=== PATIENT | male | born 1950 | race Caucasian/White ===

== ENCOUNTER 2018-04-30 15:04 | Outpatient (CLI) | payer MEDICARE | END 2018-04-30 15:05 | disposition home or self-care (01) | LOC: SC 15:04 | PROVIDERS: ATTEND Internal Medicine Pulmonary Disease | DX: G47.10 Hypersomnia, unspecified (principal); R41.89 Other symptoms and signs involving cognitive functions and awareness; R06.83 Snoring; G47.8 Other sleep disorders | CPT/HCPCS: 99203; G0463; 99212 ==

== ENCOUNTER 2018-06-13 20:49 | Outpatient (CLI) | payer MEDICARE | END 2018-06-13 20:50 | disposition home or self-care (01) | LOC: SC 20:49 | PROVIDERS: ATTEND Internal Medicine Pulmonary Disease | DX: G47.33 Obstructive sleep apnea (adult) (pediatric) (principal) | CPT/HCPCS: 95810 ==

== ENCOUNTER 2018-07-12 12:47 | Outpatient (CLI) | payer MEDICARE | END 2018-07-12 12:48 | disposition home or self-care (01) | LOC: SC 12:47 | PROVIDERS: ATTEND Nurse Practitioner Family | DX: G47.33 Obstructive sleep apnea (adult) (pediatric) (principal) | CPT/HCPCS: 99214; G0463; 99212 ==

== ENCOUNTER 2018-07-19 20:41 | Outpatient (CLI) | payer MEDICARE | END 2018-07-19 20:42 | disposition home or self-care (01) | LOC: SC 20:41 | PROVIDERS: ATTEND Internal Medicine Pulmonary Disease | DX: G47.33 Obstructive sleep apnea (adult) (pediatric) (principal); G47.61 Periodic limb movement disorder | CPT/HCPCS: 95811 ==

== ENCOUNTER 2018-08-20 12:39 | Outpatient (CLI) | payer MEDICARE | END 2018-08-20 12:40 | disposition home or self-care (01) | LOC: SC 12:39 | PROVIDERS: ATTEND Nurse Practitioner Family | DX: G47.33 Obstructive sleep apnea (adult) (pediatric) (principal); I49.9 Cardiac arrhythmia, unspecified; G47.61 Periodic limb movement disorder | CPT/HCPCS: 99215; G0463; 99212 ==

== ENCOUNTER 2018-10-22 16:17 | Outpatient (CLI) | payer MEDICARE | END 2018-10-22 16:18 | disposition home or self-care (01) | LOC: SC 16:17 | PROVIDERS: ATTEND Nurse Practitioner Family | DX: G47.33 Obstructive sleep apnea (adult) (pediatric) (principal) | CPT/HCPCS: 99214; G0463; 99212 ==

== ENCOUNTER 2019-01-22 16:11 | Outpatient (CLI) | payer MEDICARE ==
[2019-01-22 17:53] VITALS: BP 122/64
--- NOTE | 2019-01-22 17:53 | SLEEP CARE CONSULTATION ---
Information from patient questionnaire entered by Amarilis Zamora. I have reviewed and concur with the information entered by Amarilis Zamora. This document represents the service I personally performed and the decisions made by me, Kiley Quintanilla, RN, MSN, SOFTWARE BUILD ENGINEER. - History of Present Illness HPI: AGUS MENJIVAR was diagnosed to have severe, AHI 34.9, obstructive sleep apnea- hypopnea syndrome and returned today for CPAP therapy three month follow-up. The adjustment of humidity resolved the condensation. He is changing his mask cushion more often with less mask leaks noted. He generally sleeps on his side. He has also noted skin irritation and breakdown on right temporal area where his mask strap sits. Healing began after he covered it with a bandaid. The headgear is over 6 months old but no obvious problem with straps. He has been having increased restless leg symptoms the past month. He had tried iron in the past which helped reduce symptoms but had gastric distention and diarrhea and feels it aggravated his IBS. His son who also has RLS has noted less symptoms with increase of his Abilify medication. Patient's own Abilify dose was increased the past week for his moods and he has noted less symptoms. Equipment obtained from: [employer] Mask style: Nasal Mask brand: Respironics Backup mask available: Yes - Compliance Data Reviewed with Patient Average duration of nightly device use: 6.45 Compliance rate % (4+hrs/night over past 30 nights): 97.8 (90 days) Current pressure setting (cmH2O): 4-8 Humidity settin Heated hose settin Average residual AHI: 2.8 Average large leak: 9.5 minutes - Subjective Missed days of use due to: reports: other (unknown) Patient concerns: reports: mask discomfort. 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 denies: palpitations, chest pain, irregular heart rate or pulse, have to sleep sitting up, other Respiratory: denies: shortness of breath, wheeze, sputum production, chronic cough, other Gastrointestinal: reports: heartburn (rare heartburn 1-2 times a month). denies: difficulty swallowing, nausea, vomitting, diarrhea, abdominal pain, other Urinary: reports: frequency (prostrate hypertrophy). denies: incontinence, urgency, impotence, other Neurological: reports: gait or balance problems (has noted balance not as good as used to be - has follow up to discuss with PCP) Psychiatric: reports: anxiety, depression (denies thoughts of hurting self or others.), mood disorder Ear/Nose/Throat: reports: wisdom teeth removed. denies: nasal congestion, sinus problems, nose bleeds, dry mouth/throat, hoarseness, injury to nose, tonsillectomy, other Endocrine: denies: thyroid disease, history of goiter, sluggishness, too hot or cold, excessive thirst, increased appetite, increased urination, unexplained weakness, other Musculoskeletal: reports: joint pain (arthritis), back pain. denies: neck pain, joint swelling, muscle pain or cramping, mobility problems, other Immunologic: denies: sneezing, rash, itching, allergies to food or environment, other - Allergies/Medications Medication Name (generic/name brand) Strength & Dosage Duloxetine HCI (Cymbalta) 60mg cap one and one half daily Gabapentin 300mg cap 1 am 1 pm two at bedtime Abilify (Aripiprazole) 2mg tab 2 tabs daily in the morning Propanolol HCI ER 60mg cap one daily Modafinil (Provigil) 100mg daily Testosterone Gel 1% 50mg on skin in the morning Tamsulosin 0.4mg cap two daily at bedtime Miralax (Polyethylene Glycol 3350) powder One tablespoon at bedtime Vitamin D 2000unit tab one daily Vitamin C 1000mcg tab one daily Ibuprofen 200mg cap one tid Multivitamin Tab one daily Omeprazole 20mg tab one twice daily No known drug allergies: Yes (erythromycin, fluoxetine, wellbutrin) Allergies and home medications reviewed: Yes - Physical Examination Blood Pressure: 122/64 Cuff size: long Heart Rate: 74 O2 Saturation: 96 Height: 6 ft 1.5 in Weight (kg): 122.107 kg Body Mass Index: 35.0 BMI Classification: Class 2 - Impression 1. Obstructive Sleep Apnea-Hypopnea Syndrome, severe, with good treatment compliance and good apnea control. On CPAP therapy, there is improved sleep quality and continues to feel more rested overall. For his mask concerns, I showed him a Pad A Cheek sample strap covers that he can contact to see if product already made or company will make for him. Until then, he is to use the bandaid to cover the irritated area. He was also shown CPAP pillow to reduce mask leaks and pressure of mask and headgear when he sleeps on his side. He is also to change his headgear when due. Patient's apnea severity and rationale for treatment to reduce apnea, improve sleep quality and reduce cardiovascular and cerebrovascular events was reviewed. I also reviewed the benefit of consistent device use of CPAP for hypertension,anxiety and RLS. 2. Restless leg syndrome, symptoms worse until increase in abiifgty. Patient advised to follow up with his PCP to check for iron deficiency anemia as symptoms were less with past treatment but caused gastric distress and diarrhea. Perhaps another formulation could be more successful. I also suggested trying a magnesium supplement but to check with pharmacist to see if any contraindications with current medications. He is currently on gabapentin that has helped with symptoms when increased at night. Mirapex can also be used but it is important that secondary causes should be ruled out first. Patient then stated his spouse and son used this medication and had severe augmentation when taken off so would like to avoid. - Plan Patient Coaching: Since patient's apnea is more severe in the supine position, advised to avoid supine sleep when unable to use the device because of illness or when no elec tricity. Instructed to keep current mask when replaced to keep as a spare mask. Explained that weight loss or gain may change the CPAP requirement. Advised to lose weight. Discussed symptoms to report to adjust PAP pressure. Plan: Continue nasalauto CPAP pressure at 4-8 cm H2O. Consider Pad a Cheek cloth barriers Consider CPAP pillow Notify me if snoring with the mask or feeling that the pressure is too much or too little. Attempt to lose weight. Follow up with PCP for further evaluation of RLS etiology such as iron deficiency due to past history and / or magnesium deficiency. Return for follow-up in 6 months , or sooner if concerns arise. I spent 100% of this 45 minute visit face to face with the patient with greater than 50% of this was spent time counseling the patient and coordination of care.
== END 2019-01-22 16:12 | disposition home or self-care (01) ==
LOC: SC 16:11
PROVIDERS: ATTEND Nurse Practitioner Family
DX: G47.33 Obstructive sleep apnea (adult) (pediatric) (principal); G25.81 Restless legs syndrome
CPT/HCPCS: 99215; G0463; 99212

== ENCOUNTER 2019-12-27 11:52 | Outpatient (CLI) | payer OTHER | END 2019-12-27 11:53 | disposition home or self-care (01) | LOC: LAB 11:52 | PROVIDERS: ATTEND Urology | DX: Z01.812 Encounter for preprocedural laboratory examination (principal); D49.4 Neoplasm of unspecified behavior of bladder; Z20.828 Contact with and (suspected) exposure to other viral communicable diseases | CPT/HCPCS: 81599 ==

== ENCOUNTER 2019-12-30 06:17 | Day surgery (SDC) | payer OTHER ==
[2019-12-30] MEDS ORDERED: KETAMINE 500 MG/10 ML VIAL IVP ONE (06:18)
[2019-12-30] MEDS ORDERED: MIDAZOLAM 2 MG/2 ML VIAL IVP ONE (06:18)
[2019-12-30] MEDS ORDERED: fentaNYL 100 MCG/2 ML VIAL IVP ONE (06:18)
[2019-12-30] MEDS ORDERED: ONDANSETRON 4 MG/2 ML VIAL IVP ONE (06:18)
[2019-12-30] MEDS ORDERED: PROPOFOL 200 MG/20 ML VIAL IVP ONE (06:18)
[2019-12-30] MEDS ORDERED: LACTATED RINGERS 1,000 ML IV ONE (06:48)
--- NOTE | 2019-12-30 07:15 | ANESTHESIA ---
Pre-Anesthesia VS, & Labs - Diagnosis Enlarged Prostate - Procedure TURP Vital Signs: Temp Pulse Resp BP Pulse Ox 36.8 C 72 18 135/78 H 95 12/30/19 06:26 12/30/19 06:26 12/30/19 06:26 12/30/19 06:26 12/30/19 06:26 Height 6 ft 1.5 in Body Mass Index 35.0 - NPO >8 hours - Lab Results Lab results reviewed: Yes Home Medications and Allergies Home Medications: Ambulatory Orders Ascorbic Acid [Vitamin C] 1,000 mg PO DAILY 12/24/19 Cholecalciferol (Vitamin D3) [Vitamin D] 2,000 unit PO DAILY 12/24/19 DULoxetine [Cymbalta] 90 mg PO DAILY 12/24/19 Gabapentin 600 mg PO BID 12/24/19 Ibuprofen 200 mg PO BID 12/24/19 Modafinil [Provigil] 200 mg PO DAILY 12/24/19 Omeprazole 20 mg PO BID 12/24/19 Prazosin HCl [Minipress] 2 mg PO BID 12/24/19 Propranolol HCl 60 mg PO DAILY 12/24/19 Testosterone 1.25 gm TD DAILY 12/24/19 polyethylene glycoL 3350 [Miralax] 17 gm PO DAILY 12/24/19 lamoTRIgine [LaMICtal] 100 mg PO DAILY 12/26/19 Aripiprazole [Abilify] 2 mg PO QPM 12/24/19 Ascorbic Acid [Vitamin C] 1,000 mg PO DAILY 12/24/19 Cholecalciferol (Vitamin D3) [Vitamin D] 2,000 unit PO DAILY 12/24/19 DULoxetine [Cymbalta] 90 mg PO DAILY 12/24/19 Gabapentin 600 mg PO BID 12/24/19 Ibuprofen 200 mg PO BID 12/24/19 Modafinil [Provigil] 200 mg PO DAILY 12/24/19 Omeprazole 20 mg PO BID 12/24/19 Prazosin HCl [Minipress] 2 mg PO BID 12/24/19 Propranolol HCl 60 mg PO DAILY 12/24/19 Testosterone 1.25 gm TD DAILY 12/24/19 polyethylene glycoL 3350 [Miralax] 17 gm PO DAILY 12/24/19 lamoTRIgine [LaMICtal] 100 mg PO DAILY 12/26/19 Allergies/Adverse Reactions: Allergies Allergy/AdvReac Type Severity Reaction Status Date / Time fluoxetine [From Prozac] Allergy homicidal Verified 12/24/19 13:37 bupropion [From Wellbutrin] AdvReac "spaces me Verified 12/24/19 13:37 out" cariprazine [From Vraylar] AdvReac diarrhea Verified 12/24/19 13:37 erythromycin base AdvReac stomach Verified 12/24/19 13:37 probles Anes History & Medical History - Anesthetic History Anesthesia Complications: reports: No previous complications Family history of Anesthesia Complications: Denies Family history of Malignant Hyperthermia: Denies - Medical History Cardiovascular: reports: Hypertension, High cholesterol, Arrhythmia Pulmonary: reports: Sleep apnea, CPAP use Gastrointestinal: reports: GERD, Other Urinary: reports: Retention, Frequency Musculoskeletal: reports: Osteoarthritis, Chronic back pain Endocrine/Autoimmune: reports: None Blood Disorders: reports: None Skin: reports: None Smoking Status: Never smoker Psychosocial: reports: Depression - Surgical History General: Colonoscopy, Other Eyes Ears Nose Throat (EENT): Detached retina repair, Other Orthopedic: Spine surgery, Other Exam General: Alert, Oriented x3, Cooperative Dental: WNL Mouth Openin Fingerbreadth Neck Mobility: Normal Mallampati classification: II Thyromental Distance: 4-6 cm Respiratory: Lungs clear Cardiovascular: Regular rate Plan Anesthesia Type: General Consent for Procedure(s) Verified and Reviewed: Yes Code Status: Attempt Resuscitation ASA classification: 3-Severe systemic disease Is this case an emergency?: No
[2019-12-30] MEDS ORDERED: CEFAZOLIN SODIUM IN 0.9 % NACL 2 GM/100 ML BAG IV ONE (07:35)
[2019-12-30] MEDS ORDERED: HYDROcod/ACETAM 5/325 MG TABLET PO PRN (08:30)
[2019-12-30] MEDS ORDERED: HYDROmorphone 0.5 MG/0.5 ML SYRINGE IVP PRN (08:30)
[2019-12-30] MEDS ORDERED: PHENAZOPYRIDINE 100 MG TABLET PO STA (08:30)
[2019-12-30] MEDS ORDERED: ONDANSETRON 4 MG/2 ML VIAL IVP PRN (08:30)
[2019-12-30 11:00] VITALS: BP 112/70
--- NOTE | 2020-01-02 12:21 | OPERATIVE REPORT ---
DATE OF SERVICE: 12/30/2019 Physician: Radha Mena MD PROCEDURE PERFORMED: Transurethral resection of bladder tumor, 1 cm. SURGEON: Radha Mena MD ANESTHESIA: General. PREOPERATIVE DIAGNOSIS: Small bladder tumor. POSTOPERATIVE DIAGNOSIS: Small bladder tumor. INDICATIONS: Patient is a 69-year-old gentleman who in workup for hematuria, was found to have a sma ll papillary bladder lesion, brought to the operating room for resection. PROCEDURE IN DETAIL: After appropriate informed consent was obtained, patient was brought to the ope rating room, received IV antibiotics prior to the procedure. SCDS were placed. Adequate general ane sthesia was induced. He was carefully placed in dorsal lithotomy position. All pressure points care fully padded. Cleaned, prepped and draped in the usual sterile fashion. Rigid scope was introduced into his bladder, which was surveyed systematically with 30 and 70-degree lenses. With careful inspe ction, we found only the one single papillary bladder mass in the expected location cephalad lateral on the patient's right side. We used a cold cup forceps to resect this in several pieces and then a Bugbee electrocautery to cauterize the base. Hemostasis was excellent. The pieces were handed off f or permanent pathology. Patient tolerated the procedure well, was awakened and taken in stable condi tion to the postanesthesia care unit. TD: 01/02/2020 11:51
== END 2019-12-30 06:18 | disposition home or self-care (01) ==
LOC: SDS 06:17
PROVIDERS: ATTEND Urology
PROC: 0TBB8ZX Excision of Bladder, Via Natural or Artificial Opening Endoscopic, Diagnostic (ICD-10-PCS; principal; 2019-12-30 07:30)
DX: C67.1 Malignant neoplasm of dome of bladder (principal); N40.1 Benign prostatic hyperplasia with lower urinary tract symptoms; R33.9 Retention of urine, unspecified; R35.0 Frequency of micturition; I10 Essential (primary) hypertension; G47.30 Sleep apnea, unspecified; J45.909 Unspecified asthma, uncomplicated; E66.9 Obesity, unspecified; Z68.33 Body mass index [BMI] 33.0-33.9, adult; E78.5 Hyperlipidemia, unspecified; G62.9 Polyneuropathy, unspecified; K21.9 Gastro-esophageal reflux disease without esophagitis; F32.9 Major depressive disorder, single episode, unspecified; F41.9 Anxiety disorder, unspecified; F90.9 Attention-deficit hyperactivity disorder, unspecified type; G89.4 Chronic pain syndrome; R10.2 Pelvic and perineal pain; Z79.1 Long term (current) use of non-steroidal anti-inflammatories (NSAID); Z79.899 Other long term (current) drug therapy
CPT/HCPCS: 52234; J0690; J7120

== ENCOUNTER 2020-02-12 16:43 | Outpatient (CLI) | payer OTHER ==
--- NOTE | 2020-02-12 17:37 | SLEEP CARE CONSULTATION ---
Information from patient questionnaire entered by Fiona Tony. I have reviewed and concur with the information entered by Fiona Tony. This document represents the service I personally performed and the decisions made by , Gena Aguayo ARNP. History of Present Illness Service Date and Time: 02/12/2020 1643 Previous diagnosis: Severe, Obstructive Sleep Apnea-Hypopnea Syndrome AHI: 34.9 Reason for follow up: annual Equipment type: CPAP Equipment obtained from: [employer] (getting supplies as needed) Mask style: Nasal (Wisp) Mask brand: Respironics Backup mask available: Yes (old mask) Last cushion change: 2 months ago [facility] Type of [facility] Study: Polysomnography HPI additional information: AGUS MENJIVAR was diagnosed to have severe, AHI 34.9, obstructive sleep apnea- hypopnea syndrome and returned today for CPAP therapy annual follow-up. CPAP Compliance Data - Data Reviewed with Patient Average duration of nightly device use: 5 h 56 min Compliance rate %: 91.1 Current pressure setting (cmH2O): 4-8 Humidity settin Heated hose settin Average residual AHI: 3.7 Central apnea: 0.0 Obstructive apnea: 0.4 Average large leak: 34 min 2 sec Subjective Patient concerns: reports: mask leak noise (occasional due to side sleeping and not shaving often). denies: aerophagia, mask discomfort, air blowing in eyes, condensation in mask/hose, nasal congestion, dry mouth, nose, throat, epistaxis, other Observed to snore while using device: No Initial [place] Sleepiness Scale score: 16 (in 2018) Current [place] Sleepiness Scale score: 15 Allergies and Home Medications Home medication list reviewed: Yes (modafidil for some time; stopped and changed to dexedrine for his ADD) Allergy and home medication list: Lamictal for depression is new for last 7 months. He was changed to Prazosin and Tamsulosin stopped. He is now taking Flonase prn. He is not taking MVT. Review of Systems Review of systems same as previous: No (bladder cancer, nonaggressive form; had cystopic surgery) Physical Exam Heart Rate: 71 O2 Saturation: 94 Height: 6 ft 5 in Weight: 264 lb Body Mass Index: 31.3 BMI Classification: Obese Impression and Plan 1. Obstructive Sleep Apnea-Hypopnea Syndrome, severe, with good treatment compliance and good apnea control. On CPAP therapy, there is improved sleep quality and feels more rested overall. Patient [place] scale 15 today. He is concerned that he still (after 2 years of CPAP therapy continues to be very tired and sleepy during the day. He states he goes to bed between 1-2 AM and gets up between 7:30-8 AM. He still falls asleep easily at night and whenever he becomes relaxed. If the tv show or book doesn't keep interest he will fall asleep. He can also fall asleep when visiting with family, sitting quietly. He does talk in his sleep but denies sleep paralysis. Patient was advised by a psychiatrist friend to see if further study could be done to rule out narcolepsy. I discussed with patient that I will consult with my medical observer and see if this is warranted and call him back with information. Patient also has had some mask leak noise from mask displacing. He was instructed to obtain a pillow or make one with a cut out to accommodate for side sleeping to reduce mask displacement. Patient voiced agreement of this plan of care. Patient's apnea severity and rationale for treatment to reduce apnea, improve sleep quality and reduce cardiovascular and cerebrovascular events was reviewed. I also reviewed the benefit of consistent device use of CPAP for hypertension, ADD, anxiety, depression and gastric reflux. Continue auto CPAP pressure at 4-8 cm H2O. Notify me if snoring with the mask or feeling that the pressure is too much or too little. Attempt to lose weight. Consult with medical observer on need for possible study including MLST Return for follow-up one year, or sooner if concerns arise. Visit Type: In Office Time Spent with Patient (minutes): 23 Provider Statement: I spent 100% of the Face to Face Visit with the patient with greater than 50% spent counseling the patient and coordination of care.
== END 2020-02-12 16:44 | disposition home or self-care (01) ==
LOC: SC 16:43
PROVIDERS: ATTEND Nurse Practitioner Family
DX: G47.33 Obstructive sleep apnea (adult) (pediatric) (principal); E66.9 Obesity, unspecified; Z68.31 Body mass index [BMI] 31.0-31.9, adult
CPT/HCPCS: 99212; 99213

== ENCOUNTER 2020-08-27 08:47 | Outpatient (CLI) | payer OTHER ==
--- NOTE | 2020-08-27 09:56 | XRAY Report ---
PROCEDURE: Chest 2 View X-Ray INDICATIONS: ABN BREATHING TECHNIQUE: 2 view(s) of the chest. COMPARISON: None. FINDINGS: Surgical changes and devices: None. Lungs and pleura: Possible calcified granuloma in the left apex. No pleural effusions or pneumothora x. Lungs are clear. Mediastinum: Mediastinal contours are normal. Heart size is normal. Bones and chest wall: No suspicious bony abnormalities. Soft tissues appear unremarkable. IMPRESSION: No acute cardiopulmonary disease. Reviewed by: Ya Jackson MD on 08/27/2020 9:55 AM [facility] Approved by: Ya Jackson MD on 08/27/2020 9:55 AM [facility] Station ID: [id number]
== END 2020-08-27 08:48 | disposition home or self-care (01) ==
LOC: DI 08:47
PROVIDERS: ATTEND Internal Medicine
DX: R06.9 Unspecified abnormalities of breathing (principal)

== ENCOUNTER 2020-08-27 08:49 | Outpatient (CLI) | payer OTHER | END 2020-08-27 08:50 | disposition home or self-care (01) | LOC: RT 08:49 | PROVIDERS: ATTEND Internal Medicine | DX: Z53.9 Procedure and treatment not carried out, unspecified reason (principal); R06.9 Unspecified abnormalities of breathing ==

== ENCOUNTER 2020-10-29 07:57 | Outpatient (CLI) | payer OTHER | END 2020-10-29 07:58 | disposition home or self-care (01) | LOC: DI 07:57 | PROVIDERS: ATTEND Internal Medicine | DX: R06.09 Other forms of dyspnea (principal) | CPT/HCPCS: 93306 ==

== ENCOUNTER 2021-06-03 08:42 | Outpatient (CLI) | payer OTHER ==
[2021-06-03 09:41] VITALS: BP 128/81
--- NOTE | 2021-06-03 09:41 | SLEEP CARE CONSULTATION ---
Information from patient questionnaire entered by Edgardo Dumont MA. I have reviewed and concur with the information entered by Edgardo Dumont MA. This document represents the service I personally performed and the decisions made by , Gena Aguayo ARNP. History of Present Illness Service Date and Time: 06/03/2021 0842 Previous diagnosis: Severe, Obstructive Sleep Apnea-Hypopnea Syndrome AHI: 34.9 Reason for follow up: annual (LAST SEEN 01/2020) Equipment type: CPAP Equipment obtained from: [employer] (getting supplies as needed) Mask style: Nasal (Wisp) Mask brand: Respironics Backup mask available: Yes (old mask) Last cushion change: 1 month [facility]: Yes [facility] additional information: AGUS MENJIVAR was diagnosed to have severe, AHI 34.9, obstructive sleep apnea- hypopnea syndrome and returned today for CPAP therapy annual follow-up. Sleep Study - Results Prior sleep [facility]: Yes [facility] Data - Data Reviewed with Patient Average duration of nightly device use: 4 hours 34 minutes Compliance rate %: 27.2 Current pressure setting (cmH2O): 4-8 Humidity settin Heated hose settin Average residual AHI: 4.3 Average large leak: 39 minutes 5 seconds Compliance data discussion: He stopped using his old machine because he was waking up with coughing due to irritation with some chemical smells. He was having vertigo and balance issues for several months that cleared up after he stopped using his old machine. He started new device about a month ago from [employer]. Subjective Missed days of use due to: reports: illness (He has coughing issues at night due to acid reflux or other issues keeping him from using CPAP), other (machine recall and some upper airway irritation with using old Dreamstation) Patient concerns: reports: other (dizziness, resolved with new machine). denies: aerophagia, mask discomfort, air blowing in eyes, mask leak noise, condensation in mask/hose, nasal congestion, dry mouth, nose, throat, epistaxis Observed to snore while using device: No Current pressure setting perceived as: comfortable On therapy, patient: reports: other (knows he needs to sleep more). denies: drowsiness while driving Initial [place] Sleepiness Scale score: 16 (in 2018) Current [place] Sleepiness Scale score: 16 ([place] 2020) Allergies and Home Medications Home medication list reviewed: Yes Allergy and home medication list: Stopped Modafinil and Abilify Started Albuterol 90 mcg, prn Dexadrine 15 mg, 2 in morning and 1 at lunchtime change to Prazosin to 5 mg HS and 2 mg AM Review of Systems Review of systems same as previous: No (Bladder cancer surgery in 11/2019; COPD) Physical Exam Vital signs obtained and entered by: Andrea DUMONT CMA AACORKY Blood Pressure: 128/81 (left wrist) Cuff size: wrist Heart Rate: 68 O2 Saturation: 96 (with mask) Height: 6 ft 5 in Weight: 260 lb (with winter clothes) Body Mass Index: 30.8 BMI Classification: Obese Impression and Plan 1. Obstructive Sleep Apnea-Hypopnea Syndrome, severe, with poor treatment compliance and good apnea control. Patient started having difficulty with dizziness and balance issues for several months. Then he started waking up coughing with upper airway irritation and a strange chemical smell in his mask. He states after couple of nights he got notification about the recall for [employer] DreamStations. He stopped using his CPAP machine and the upper airway irritation, coughing stopped. He states he received a new DreamStation 2 but was hesitant to start using it because of the issues he has been having with his balance when using the left CPAP machine. He works with the doctor for his behavioral health and they encouraged him to restart using his CPAP due to issues he is was having. He states since starting the CPAP he has not noticed any of the balance issues or upper airway irritation reoccurring. He is having some issues with acid reflux or something that is causing him to cough at night. He is scheduled for an upper endoscopy to check this out. He is also scheduled to meet with his coordinator integrated marketing for his new diagnosis of COPD. Compliance guidelines reviewed for insurance coverage. Optimal use of CPAP is use of CPAP with all sleep to obtain maximum benefit of treatment. Patient is encouraged to use CPAP with all sleep. I will have him follow up in 1-2 months to recheck compliance. Patient's apnea severity and rationale for treatment to reduce apnea, improve sleep quality and reduce cardiovascular and cerebrovascular events was reviewed. I also reviewed the benefit of consistent device use of CPAP for hypertension, gastric reflux, depression, anxiety and attention deficit. Patient was encouraged to lose weight for their overall health and to reduce apneas. * Continue auto CPAP pressure at 4-8 cmH2O * Notify me if snoring with mask or feeling that the pressure is too much or too little * Attempt to lose weight * Call this office if any problems using CPAP * Return for follow up in 1 year, or sooner if concerns arise Counseling Topics: Spare mask, Weight loss health impact Visit Type: In Office Time Spent with Patient (minutes): 29 Provider Statement: I spent 100% of the Face to Face Visit with the patient with greater than 50% spent counseling the patient and coordination of care.
== END 2021-06-03 08:43 | disposition home or self-care (01) ==
LOC: SC 08:42
PROVIDERS: ATTEND Nurse Practitioner Family
DX: G47.33 Obstructive sleep apnea (adult) (pediatric) (principal); E66.9 Obesity, unspecified; Z68.30 Body mass index [BMI] 30.0-30.9, adult
CPT/HCPCS: 99212; 99213